=== PATIENT | female | born 1995 | race Two or more races ===

== ENCOUNTER 2018-02-16 20:23 | Emergency (ER) | payer MEDICAID ==
[2018-02-16 20:35] VITALS: BP 129/72
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
== END 2018-02-16 21:48 | disposition home or self-care (01) ==
LOC: ER 20:23
DX: S51.812A Laceration without foreign body of left forearm, initial encounter (principal); X78.8XXA Intentional self-harm by other sharp object, initial encounter; Z62.820 Parent-biological child conflict; S70.312A Abrasion, left thigh, initial encounter; S70.311A Abrasion, right thigh, initial encounter; Y09 Assault by unspecified means; S10.91XA Abrasion of unspecified part of neck, initial encounter; S80.212A Abrasion, left knee, initial encounter; X58.XXXA Exposure to other specified factors, initial encounter; Z88.0 Allergy status to penicillin; F17.200 Nicotine dependence, unspecified, uncomplicated
CPT/HCPCS: 99283